=== PATIENT | male | born 1995 | race Two or more races ===

== ENCOUNTER → 2021-02-15 | Outpatient (CLI) | payer BC, SELFPAY ==
--- NOTE | 2021-02-17 11:02 | XR_ITS ---
Exam: MRI knee left knee with intravenous contrast Date and time of exam: February 17, 2021 1120 hours Comparison April 09, 2020 INDICATIONS: Chronic knee pain history knee repair, knee pain 3-4 weeks after heavy exercise Technique: Multiple axial, coronal, and sagittal sections on the knee have been obtained post intravenous administration 15 cc gadolinium. T2-Weighted sagittal, fat-suppressed images, TR 3,500, TE 62, T2 weighted coronal fat-saturated images, TR 3,500, TE 62 Proton density sagittal sections, TR 1800, TE 31. T-1 weighted coronal images, TR 524, TE 13.0 Findings: Medial meniscus anterior horn intact. Medial meniscus, body complex tear, coronal image 13, outer one half body the medial meniscus with vertical component communicating inferior articular surface. Posterior horn medial meniscus complex tear outer one half with large vertical component, sagittal image 5. Lateral meniscus anterior horn mild truncation inner margin Lateral meniscus, body is intact Posterior horn lateral meniscus is distorted by artifacts Reconstructed anterior cruciate ligament mild sprain Posterior cruciate ligament appears intact. Knee effusion is small. Quadriceps and patellar tendons appear intact. There is no evidence of tendinosis. Inflammatory change or fracture of Hoffa's fat pad is not seen. Medial patellar facet demonstrates no thinning. Lateral patellar facet cartilage demonstrates no thinning. Trochlear cartilage demonstrates no thinning. Marrow signal adequate. Medial collateral ligament appears intact. No meniscocapsular separation is seen. Illiotibial band and fibular collateral ligament are intact. Biceps femoris tendons appear intact. Medial femoral condylar articular cartilage demonstrates no thinning. Lateral femoral condylar articular cartilage demonstratesno thinning. Tibial plateau cartilage demonstrates no thinning. Impression: Complex tears body and posterior horn medial meniscus Mild sprain reconstructed anterior cruciate ligament
== END | disposition home or self-care (01) ==
PROVIDERS: Referring Provider Orthopaedic Surgery; Visit Provider Orthopaedic Surgery
DX: I10 Essential (primary) hypertension (principal)

== ENCOUNTER → 2024-08-03 | Outpatient (CLI) | payer BC, SELFPAY ==
--- NOTE | 2024-08-03 15:46 | XR_ITS ---
Examination: Lumbar spine, 5 views Technique: Lumbar spine AP, lateral, coned lateral lower lumbar spine, bilateral obliques 5 views Exam date and time: August 03, 2024 1617 hours INDICATIONS: Back injury 2017, onset low back pain radiating down the left hip beginning 2 weeks ago. FINDINGS: Adequate alignment lumbar vertebral bodies Moderate disc narrowing L5-S1 No lumbar fracture. No spondylolisthesis IMPRESSION: Moderate degenerative disc disease L5-S1 As clinically warranted, consider MRI lumbar spine without contrast follow-up to best assess for soft tissue disc protrusion producing radicular left hip pain
== END | disposition home or self-care (01) ==
LOC: CDIM 15:39
PROVIDERS: Referring Provider Physician Assistant; Visit Provider Physician Assistant
DX: M51.379 Other intervertebral disc degeneration, lumbosacral region without mention of lumbar back pain or lower extremity pain (principal); S39.92XS Unspecified injury of lower back, sequela; X58.XXXS Exposure to other specified factors, sequela
CPT/HCPCS: 72110

== ENCOUNTER → 2024-09-14 | Outpatient (CLI) | payer BC, SELFPAY ==
--- NOTE | 2024-09-14 16:30 | XR_ITS ---
Examination: MRI lumbar spine without contrast Date and time of exam: September 14, 2024 1710 hours INDICATIONS: Low back pain 8 years radiating to the left leg difficulty walking Technique: Multiple MRI axial and sagittal sections lumbar spine. Sagittal T2-weighted images, TR 3500, TE 118 T1 weighted transverse sections, TR 688 T8.5, T2-weighted sagittal sections T1 weighted sagittal sections TR 621, TE 30 T2 axial sections, TR 4, 190, TE 84. Findings: Adequate alignment lumbar vertebral bodies No lumbar fracture Normal marrow signal lumbar vertebral bodies Advanced disc thinning L5-S1 with disc desiccation No spondylolisthesis L5-S1 7 mm partially extruded left paracentral disc displacing the left S1 nerve root More cephalad levels are unremarkable IMPRESSION: L5-S1 7 mm partially extruded left paracentral disc displacing the left S1 nerve root
== END | disposition home or self-care (01) ==
LOC: SMRI 16:06
PROVIDERS: PCP Physician Assistant; Referring Provider Physician Assistant; Visit Provider Physician Assistant
DX: M51.27 Other intervertebral disc displacement, lumbosacral region (principal)
CPT/HCPCS: 72148